=== PATIENT | male | born 1950 | race Caucasian/White ===

== ENCOUNTER → 2017-08-31 | Outpatient (CLI) | payer OTHER, MEDICARE | LOC: FIMAGING 17:50 | PROVIDERS: ATTEND Family Medicine | DX: M50.01 Cervical disc disorder with myelopathy, high cervical region (principal); M47.12 Other spondylosis with myelopathy, cervical region; M99.51 Intervertebral disc stenosis of neural canal of cervical region; M99.31 Osseous stenosis of neural canal of cervical region; M48.02 Spinal stenosis, cervical region ==